=== PATIENT | female | born 1965 | race Caucasian/White ===

== ENCOUNTER 2023-05-17 09:31 | Emergency (ER) | payer BC ==
[2023-05-17] MEDS ORDERED: ACETAMINOPHEN 500 MG TABLET (FP) PO ONE (10:41)
[2023-05-17] MEDS ORDERED: LIDOCAINE 4% PATCH TP ONE ×2 (10:41→11:05)
[2023-05-17] MEDS ORDERED: KETOROLAC TROMETHAMINE 30 MG/1 ML VIAL IM ONE (10:41)
[2023-05-17] MEDS ORDERED: CYCLOBENZAPRINE HCL 10 MG TABLET (FP) PO ONE (10:41)
[2023-05-17 10:55] LABS: EPI CELLS 1 /uL (0-25.1); HYALINE CASTS 0 /uL (0-3.1); URINE APPEARANCE CLEAR; URINE BACTERIA 2 /uL (0-1359); URINE BILIRUBIN NEGATIVE (NEGATIVE); URINE COLOR YELLOW; URINE GLUCOSE (UA) NEGATIVE (NEGATIVE); URINE KETONE NEGATIVE (NEGATIVE); URINE LEUK ESTERASE NEGATIVE (NEGATIVE); URINE NITRITE NEGATIVE (NEGATIVE); URINE PROTEIN TRACE (NEGATIVE); URINE RBC 251 /uL (0-23.9); URINE UROBILINOGEN 0.2 mg/dL (0.2-1.0); URINE WBC 2 /uL (0-25.8)
[2023-05-17] MEDS ORDERED: KETOROLAC TROMETHAMINE 30 MG/1 ML VIAL ONE (11:05)
[2023-05-17] MEDS ORDERED: CYCLOBENZAPRINE HCL 10 MG TABLET (FP) ONE (11:05)
[2023-05-17] MEDS ORDERED: ACETAMINOPHEN 500 MG TABLET (FP) ONE (11:05)
[2023-05-17 14:19] VITALS: BP 136/65; PULSE 72; RESP 18; TEMP 98.1; BMI 25.4
[2023-05-17] MEDS ORDERED: LIDOCAINE PATCH REMOVAL MC SCH (22:00)
== END 2023-05-17 13:04 | disposition home or self-care (01) ==
LOC: JERFT 09:31 → JER 09:31 → JERFT 13:04
PROC: 3E0233Z Introduction of Anti-inflammatory into Muscle, Percutaneous Approach (ICD-10-PCS; principal; 2023-05-17)
DX: M54.50 Low back pain, unspecified (principal)
CPT/HCPCS: 74176-TC; 81003; 84703; 87086; 99284-25

== ENCOUNTER 2023-06-07 10:46 | Emergency (ER) | payer BC ==
[2023-06-07 10:54] VITALS: BP 166/87; PULSE 88; RESP 18; TEMP 98.7; BMI 28.3
[2023-06-07] MEDS ORDERED: IBUPROFEN 600 MG TABLET (FP) PO ONE (12:06)
[2023-06-07] MEDS: IBUPROFEN 600 MG TABLET (FP) PO ONE (12:09)
== END 2023-06-07 13:39 | disposition home or self-care (01) ==
LOC: JERFT 10:46
DX: S70.02XA Contusion of left hip, initial encounter (principal); S90.01XA Contusion of right ankle, initial encounter; W01.0XXA Fall on same level from slipping, tripping and stumbling without subsequent striking against object, initial encounter; Y93.01 Activity, walking, marching and hiking
CPT/HCPCS: 73502-TC-LT-FY; 73610-TC-RT-FY; 73630-TC-RT-FY; 99284-25